=== PATIENT | male | born 1995 | race Caucasian/White ===

== ENCOUNTER → 2016-08-08 | Outpatient (CLI) | payer BC ==
[~2016-08-08] MED LIST: DOXY100C76 PO
[2016-08-08 11:56] LABS: BASO % 0.8 %; BASO ABS # 0.03 K/uL (0-0.2); COMPLETE YES; EOS % 3.1 %; HEMATOCRIT 47.5 % (42-52); LYMPH % 37.3 %; LYMPH ABS # 1.43 K/uL (1.2-3.4); MEAN CELL VOLUME 93.5 fL (80-100); MEAN CORPUSCULAR HEMOGLOBIN 31.5 pg (25-34); MEAN CORPUSCULAR HGB CONC 33.7 g/dl (32-36); MONO % 12.5 %; NEUT % 46.3 %; PLATELET COUNT 210 K/uL (130-400); RED BLOOD COUNT 5.08 M/uL (4.7-6.1); WHITE BLOOD COUNT 3.83 K/uL (4.8-10.8)
[2016-08-08 16:59] LABS: CHOLESTEROL/HDL RATIO 3.5; FERRITIN 29.3 ng/ml (8.0-388.0)
[2016-08-08 17:08] LABS: CALCULATED INSULIN SENSITIVITY 0.325; GLUCOSE LOG 1.9542; INSULIN FASTING 13.4 mU/L (3-25); INSULIN LOG 1.1271
== END | disposition home or self-care (01) ==
LOC: C.LABBFT 11:16
PROVIDERS: ATTEND Lactation Consultant, Non-RN
DX: R53.83 Other fatigue (principal)